=== PATIENT | female | born 1955 | race Caucasian/White ===

== ENCOUNTER → 2022-12-17 | Outpatient (CLI) | payer OTHER ==
[~2022-12-17] MED LIST: CELE200; CYCL10; ESCI10; LORA1 PO
== END ==
LOC: LAB SHORT 09:57 → PLD 09:57
DX: D48.5 Neoplasm of uncertain behavior of skin (principal)
CPT/HCPCS: 88305

== ENCOUNTER → 2025-09-12 | Outpatient (CLI) | payer OTHER | LOC: LAB 11:46 | DX: B35.1 Tinea unguium (principal) ==